=== PATIENT | male | born 1945 | race Caucasian/White ===

== ENCOUNTER 2021-06-24 03:12 | Emergency (ER) | payer MEDICARE ==
[~2021-06-24] VITALS: Ht 177.8 cm; Wt 80.5 kg
[2021-06-24 03:35] LABS: HEMATOCRIT 36.7 % (39.0-50.0); HEMOGLOBIN 12.4 g/dl (14.0-18.0); IMMATURE GRANULOCYTES 1.3 % (0.0-5.0); MEAN CELL VOLUME 96.1 fL CALC (80.0-100.0); MEAN CORPUSCULAR HGB 32.5 pG CALC (26.0-32.0); MEAN CORPUSCULAR HGB CONC 33.8 g/dL CAL (32.0-36.0); NEUT# 7.07 thou/uL (1.82-7.42); RED BLOOD COUNT 3.82 mill/uL (4.70-6.10); RED CELL DISTRI WIDTH 11.8 % (11.5-15.5)
[2021-06-24 03:39] LABS: ALBUMIN 3.4 g/dL (3.2-5.0); ALKALINE PHOSPHATASE 61 u/l (38-126); BUN 20 mg/dL (8-23); BUN/CREATININE RATIO 16 (12-20 (CALC)); CHLORIDE 100 mmol/l (95-108); CREATININE 1.3 mg/dL (0.7-1.3); GFR 54 ML/MIN (>=60 (CALC)); GFR FOR AFR.AMER. > 60 ML/MIN (>=60 (CALC)); POTASSIUM 4.2 mmol/l (3.5-5.1); SODIUM 130 mmol/l (137-146); TOTAL PROTEIN 5.8 g/dL (6.3-8.2)
[2021-06-24 03:40] LABS: ANION GAP 17 (6-22 (CALC)); BILIRUBIN, TOTAL 0.6 mg/dL (0.0-1.4); CARBON DIOXIDE 17 mmol/l (22-30); SGOT/AST 62 u/l (19-48)
[2021-06-24 03:46] LABS: MAGNESIUM 1.4 mg/dL (1.6-2.3)
[2021-06-24 03:49] LABS: D-DIMER 1.54 mg/L (0.19-0.60)
[2021-06-24 03:51] LABS: MYOGLOBIN 74 ng/mL (0 - 121)
[2021-06-24 03:53] LABS: PROTHROMBIN TIME 10.4 SECONDS (9.0-12.5)
[2021-06-24] MEDS ORDERED: ULORIC80 MG PO (03:53)
[2021-06-24] MEDS ORDERED: COREG25 MG PO (03:53)
[2021-06-24] MEDS ORDERED: NORVASC5 M1 PO (03:54)
[2021-06-24] MEDS ORDERED: LISINOPRIL30 MG PO (03:54)
[2021-06-24] MEDS ORDERED: ATORVASTATIN CA10 MG PO (03:55)
[2021-06-24] MEDS ORDERED: SINGULAIR10 MG PO (03:55)
[2021-06-24] MEDS ORDERED: XALATAN0.005 % OU (03:56)
[2021-06-24] MEDS ORDERED: NASONEX50 MCG/ACT NAB (03:57)
[2021-06-24] MEDS ORDERED: ADULT ASPIRIN R81 MG PO (03:58)
[2021-06-24] MEDS ORDERED: SLOW-MAG PO (03:59)
[2021-06-24] MEDS ORDERED: VITAMIN D2000 UNI3 PO (03:59)
[2021-06-24] MEDS ORDERED: CO Q-10200 M1 PO (04:01)
[2021-06-24] MEDS ORDERED: VITAMIN B COMPL1 TAB PO (04:03)
[2021-06-24] MEDS ORDERED: OMEGA 3340 MG PO (04:03)
[2021-06-24 04:04] LABS: DIGOXIN 0.4 ng/mL (0.8-2.0)
[2021-06-24 06:31] VITALS: BP 155/70
== END 2021-06-24 04:26 ==
LOC: ED 03:12
PROVIDERS: Family Medicine
DX: R00.1 Bradycardia, unspecified (principal); I48.91 Unspecified atrial fibrillation; Z95.0 Presence of cardiac pacemaker

== ENCOUNTER 2022-10-15 08:44 | Day surgery (SDC) | payer MEDICARE ==
[~2022-10-15] VITALS: Ht 177.8 cm; Wt 83.9 kg
[~2022-10-15 08:44] MED LIST: ADULT ASPIRIN R81 MG PO; ATORVASTATIN CA10 MG PO; CO Q-10200 M1 PO; COREG25 MG PO; LISINOPRIL30 MG PO; NASONEX50 MCG/ACT NAB; NORVASC5 M1 PO; OMEGA 3340 MG PO; SINGULAIR10 MG PO; SLOW-MAG PO; ULORIC80 MG PO; VITAMIN B COMPL1 TAB PO; VITAMIN D2000 UNI3 PO; XALATAN0.005 % OU; XARELTO20 MG PO
[2022-10-15 11:40] VITALS: BP 124/75
== END 2022-10-15 11:52 | disposition home or self-care (01) ==
LOC: ENDO 08:44 → ORM 13:30 → ENDO 13:50 → ORM 14:50
PROVIDERS: ATTEND Internal Medicine Gastroenterology
PROC: 0DBK8ZX Excision of Ascending Colon, Via Natural or Artificial Opening Endoscopic, Diagnostic (ICD-10-PCS; principal; 2022-10-15)
PROC: 0DBM8ZX Excision of Descending Colon, Via Natural or Artificial Opening Endoscopic, Diagnostic (ICD-10-PCS; 2022-10-15)
PROC: 0DBH8ZX Excision of Cecum, Via Natural or Artificial Opening Endoscopic, Diagnostic (ICD-10-PCS; 2022-10-15)
DX: Z12.11 Encounter for screening for malignant neoplasm of colon (principal); D12.2 Benign neoplasm of ascending colon; D12.0 Benign neoplasm of cecum; K57.30 Diverticulosis of large intestine without perforation or abscess without bleeding; K64.8 Other hemorrhoids; I10 Essential (primary) hypertension; E11.9 Type 2 diabetes mellitus without complications; D46.9 Myelodysplastic syndrome, unspecified; I48.91 Unspecified atrial fibrillation; E78.5 Hyperlipidemia, unspecified; Z86.010 Personal history of colon polyps; Z79.01 Long term (current) use of anticoagulants; Z95.0 Presence of cardiac pacemaker

== ENCOUNTER 2024-04-24 23:15 | Emergency (ER) | payer MEDICARE ==
[~2024-04-24] VITALS: Ht 177.8 cm; Wt 78.0 kg
[~2024-04-24 23:15] MED LIST changes: +XALATAN 0.005%2.5 ML OP
[2024-04-25] VITALS (21 sets, daily range): BP systolic 115–131; BP diastolic 55–69
[2024-04-25 00:13] LABS: BASO% 0.7 % (0-3); EOS% 2.1 % (0-8); HEMATOCRIT 28.7 % (39.0-50.0); HEMOGLOBIN 9.6 g/dl (14.0-18.0); IMMATURE GRANULOCYTES 1.4 % (0.0-5.0); LYMPH% 8.7 % (15-41); MEAN CELL VOLUME 93.8 fL CALC (80.0-100.0); MEAN CORPUSCULAR HGB 31.4 pG CALC (26.0-32.0); MEAN CORPUSCULAR HGB CONC 33.4 g/dL CAL (32.0-36.0); MONO% 12.1 % (2-13); NEUT# 4.33 thou/uL (1.82-7.42); RED BLOOD COUNT 3.06 mill/uL (4.70-6.10); RED CELL DISTRI WIDTH 12.3 % (11.5-15.5)
[2024-04-25 00:49] LABS: ALBUMIN 3.3 g/dL (3.2-5.0); BILIRUBIN, TOTAL 0.7 mg/dL (0.2-1.3); CREATININE 1.3 mg/dL (0.7-1.3)
[2024-04-25 00:54] LABS: PROTHROMBIN TIME 18.1 SECONDS (9.0-12.5)
[2024-04-25] MEDS ORDERED: SODIUM CHLORIDE 0.9% 500 ML IV ONE (01:15)
[2024-04-25 02:02] LABS: URINE BILIRUBIN - DIPSTICK Negative (NEGATIVE); URINE BLOOD DIPSTICK Negative (NEGATIVE); URINE GLUCOSE - DIPSTICK Negative (NEGATIVE); URINE KETONE Negative (NEGATIVE); URINE LEUK ESTERASE Negative (NEGATIVE); URINE NITRITE - DIPSTICK Negative (Negative); URINE PROTEIN - DIPSTICK Negative (NEG-TRACE); URINE UROBILINOGEN - DIPSTICK 0.2 E.U./dL (0.2)
[2024-04-25 02:03] LABS: URINE COLOR Yellow
[2024-04-25 06:16] LABS: ALBUMIN 3.3 g/dL (3.2-5.0); BILIRUBIN, TOTAL 0.8 mg/dL (0.2-1.3); CREATININE 1.1 mg/dL (0.7-1.3); TOTAL PROTEIN 6.3 g/dL (6.3-8.2)
== END 2024-04-25 07:14 | disposition home or self-care (01) ==
LOC: ED 23:15
PROVIDERS: Emergency Medicine
DX: R53.1 Weakness (principal); R55 Syncope and collapse; I48.91 Unspecified atrial fibrillation; Z95.0 Presence of cardiac pacemaker

== ENCOUNTER 2024-08-12 01:44 | Emergency (ER) | payer MEDICARE ==
[~2024-08-12] VITALS: Ht 177.8 cm; Wt 67.0 kg
[~2024-08-12 01:44] MED LIST changes: +CARVEDILOL25 MG PO; -COREG25 MG PO; +COREG6.25 MG PO; +COZAAR100 MG PO; +COZAAR50 MG PO; +LASIX20 MG PO
[2024-08-12 01:50] VITALS: BP 136/73
[2024-08-12 02:00] VITALS: BP 137/72
[2024-08-12 02:26] LABS: BASO% 0.5 % (0-3); EOS% 0.9 % (0-8); HEMATOCRIT 34.2 % (39.0-50.0); HEMOGLOBIN 11.2 g/dl (14.0-18.0); IMMATURE GRANULOCYTES 0.5 % (0.0-5.0); LYMPH% 9.6 % (15-41); MEAN CELL VOLUME 99.1 fL CALC (80.0-100.0); MEAN CORPUSCULAR HGB 32.5 pG CALC (26.0-32.0); MEAN CORPUSCULAR HGB CONC 32.7 g/dL CAL (32.0-36.0); MONO% 10.7 % (2-13); NEUT# 4.36 thou/uL (1.82-7.42); NEUT% 77.8 % (42-76); RED BLOOD COUNT 3.45 mill/uL (4.70-6.10); RED CELL DISTRI WIDTH 12.9 % (11.5-15.5)
[2024-08-12 02:33] LABS: ALBUMIN 3.7 g/dL (3.2-5.0); BILIRUBIN, TOTAL 0.9 mg/dL (0.2-1.3); CREATININE 1.7 mg/dL (0.7-1.3); POTASSIUM 3.7 mmol/l (3.5-5.1); TOTAL PROTEIN 6.5 g/dL (6.3-8.2)
[2024-08-12 02:35] LABS: MAGNESIUM 1.1 mg/dL (1.6-2.3)
[2024-08-12] MEDS ORDERED: MAGNESIUM OXIDE 400 MG/TAB PO ONE (02:55)
[2024-08-12] MEDS ORDERED: MAGNESIUM SULFATE 50% 1 GM/2 ML IV ONE (02:55)
[2024-08-12 03:11] VITALS: BP 152/79
[2024-08-12] MEDS ORDERED: MAGNESIUM SULFATE HEPTAHYDRATE 50 ML IV ONE (03:15)
== END 2024-08-12 03:38 ==
LOC: ED 01:44
PROVIDERS: Family Medicine
DX: T82.199A Other mechanical complication of unspecified cardiac device, initial encounter (principal); R00.1 Bradycardia, unspecified; E83.42 Hypomagnesemia; I10 Essential (primary) hypertension; I48.91 Unspecified atrial fibrillation; Y83.1 Surgical operation with implant of artificial internal device as the cause of abnormal reaction of the patient, or of later complication, without mention of misadventure at the time of the procedure; Z95.0 Presence of cardiac pacemaker
CPT/HCPCS: J3475